=== PATIENT | female | born 2000 | race African-American/Black ===

== ENCOUNTER 2024-06-14 16:01 | Emergency (ER) | payer MEDICAID ==
[~2024-06-14] VITALS: Ht 170.2 cm; Wt 136.0 kg
[2024-06-14 16:09] VITALS: O2SAT 99
[2024-06-14] MEDS: ACETAMINOPHEN 325MG TABLET PO ONE (17:19)
[2024-06-14] MEDS ORDERED: ACET-2708 MT (17:39)
[2024-06-14 18:10] VITALS: BP 134/68; PULSE 91; RESP 18; TEMP 36.9; O2SAT 99
== END 2024-06-14 18:11 | disposition home or self-care (01) ==
LOC: ER 16:01
DX: S01.512A Laceration without foreign body of oral cavity, initial encounter (principal); Z88.6 Allergy status to analgesic agent; Y04.0XXA Assault by unarmed brawl or fight, initial encounter; Y93.89 Activity, other specified; Y92.89 Other specified places as the place of occurrence of the external cause; Y99.8 Other external cause status
CPT/HCPCS: 99282